=== PATIENT | female | born 2000 | race African-American/Black ===

== ENCOUNTER 2022-01-16 18:14 | Emergency (ER) | payer BC ==
[2022-01-16] MEDS ORDERED: Ondansetron 4 MG/2 ML SDV IVPUSH ONE (18:57)
[2022-01-16] MEDS ORDERED: Ketorolac 30 MG/ML SDV IVPUSH ONE (18:57)
[2022-01-16] MEDS ORDERED: Sodium Chloride 0.9% 1,000 ML IV ONE (18:57)
[2022-01-16] MEDS ORDERED: Morphine 4 MG/ML VIAL IVPUSH ONE (18:58)
[2022-01-16] MEDS ORDERED: cefTRIAXone 1 GM in Sodium Chloride 0.9% 50 ML IV ONE (19:00)
[2022-01-16 20:14] LABS: CARBON DIOXIDE,CO2 27.5 mmol/L (21.0-32.0); POTASSIUM,K 3.9 mmol/L (3.5-5.1)
[2022-01-16 20:50] VITALS: BP 127/71; PULSE 81
== END 2022-01-16 20:51 | disposition home or self-care (01) ==
LOC: MW.ED 18:14
DX: N10 Acute pyelonephritis (principal); Z79.899 Other long term (current) drug therapy; Z86.16 Personal history of COVID-19
CPT/HCPCS: 36415; 74176; 80053; 81001; 81025; 83690; 85025; 87086; 87088; 87186; 96365; 96375; 99284; J0696; J1885; J2270; J2405; J7030